=== PATIENT | female | born 1965 | race Caucasian/White ===

== ENCOUNTER 2017-10-05 09:06 | Observation (INO) | payer BC ==
[~2017-10-05] VITALS: Ht 149.9 cm; Wt 63.0 kg
[2017-10-05 09:47] LABS: BASOPHILS # (AUTO) 0.1 (0.0-0.1); BASOPHILS % 1.2 % (0.0-1.0); EOSINOPHILS % 0.2 % (0.0-6.0); HEMATOCRIT 26.4 % (34.2-44.1); LYMPHOCYTES % 24.3 % (18.0-39.1); MEAN CORPUSCULAR HEMOGLOBIN 16.2 pg (28-32); MEAN CORPUSCULAR HGB CONC 26.9 g/dL (31-35); MEAN CORPUSCULAR VOLUME 60.3 fL (81-99); MONOCYTES # (AUTO) 0.3 (0.2-0.8); MONOCYTES % 7.1 % (4.4-11.3); NEUTROPHILS # (AUTO) 2.7 (2.1-6.9); NEUTROPHILS % 66.7 % (38.7-80.0); PLATELET COUNT 360 x10e3/uL (140-360); RED BLOOD COUNT 4.38 x10e6/uL (3.6-5.1); RED CELL DISTRIBUTION WIDTH 22.2 % (11.7-14.4)
[2017-10-05 10:10] LABS: HEMOGLOBIN 7.1 g/dL (12.0-16.0)
[2017-10-05 10:15] LABS: ANION GAP 13.6 mmol/L (8-16); BLOOD UREA NITROGEN 7 mg/dL (7-26); BUN/CREATININE RATIO 11 (6-25); CALCIUM 8.7 mg/dL (8.4-10.2); CARBON DIOXIDE 22 mmol/L (22-29); CHLORIDE 107 mmol/L (98-107); CREATININE, SERUM 0.66 mg/dL (0.57-1.11); EST GLOMERULAR FILTRATION RATE > 60 ML/MIN (60-); GLUCOSE 121 mg/dL (74-118); POTASSIUM 3.6 mmol/L (3.5-5.1); SODIUM 139 mmol/L (136-145)
[2017-10-05] MEDS ORDERED: SODIUM CHLORIDE 0.9% 250ML 250 ML IV ONE (10:30)
[2017-10-05 10:35] LABS: INR 0.88; PROTHROMBIN TIME 12.4 seconds (11.9-14.5)
[2017-10-05 10:36] LABS: PARTIAL THROMBOPLASTIN TIME 23.3 seconds (23.8-35.5)
[2017-10-05] MEDS ORDERED: SODIUM CHLORIDE FLUSH 10 ML SYR INJ PRN (10:45)
--- NOTE | 2017-10-05 12:02 | History and Physical ---
PRIMARY CARE PHYSICIAN: None. CHIEF COMPLAINT: Heavy menstrual bleeding. HISTORY OF PRESENT ILLNESS: This is a 52-year-old woman who has been having increased menstrual bleeding for the past 9 months. Over the last 3 cycles, it has been increased, using more than 18 tampons per day during the menstruation. She has also had irregular periods over the past months. She does not have an [employer]. She denies any weight loss, denies any other symptoms. PAST MEDICAL HISTORY: Hypertension, heavy menstrual bleeding. PAST SURGICAL HISTORY: 20 years ago. ALLERGIES: PER THE ELECTRONIC MEDICAL RECORDS. FAMILY HISTORY/SOCIAL HISTORY: Patient is . She has 3 children. No alcohol, illicit drugs or cigarettes. MEDICATIONS: Per the electronic medical records. Medications reviewed. REVIEW OF SYSTEMS: Denies any dizziness, chest pain. VITAL SIGNS: Reviewed. PHYSICAL EXAMINATION GENERAL APPEARANCE: A tired-appearing woman resting in bed. HEENT: Anicteric. Pupils responsive to light. No oral lesions. CARDIOVASCULAR: Normal S1/S2. LUNGS: Moderate breath sounds. ABDOMEN: Soft, nondistended. Mildly sore secondary to menstruation. EXTREMITIES: No edema or calf tenderness. NEUROLOGICALLY: Alert and oriented x3. Moving all extremities. LABS: Reviewed. ASSESSMENT: A 52-year-old woman. 1. Menorrhagia. 2. Microcytic anemia. 3. Overweight state. 4. Hypertension. PLAN 1. Will obtain anemia panel and likely transfuse patient. 2. I will consult federal aid coordinator, Dr. Catherine. 3. Will obtain a screening hemoglobin A1c and lipid panel. Will also obtain a TSH. 4. Will use SCDs and Pepcid b.i.d. 5. Disposition. Follow up Dr. Ctaherine's recommendations. Job#: [id number] [place]
--- NOTE | 2017-10-05 12:21 | Diagnostic Imaging Report ---
EXAM: Transabdominal and Transvaginal Pelvic Ultrasound INDICATION: \S\dysmenorrhea COMPARISON: None TECHNIQUE: Grayscale transverse and sagittal transabdominal and transvaginal images were obtained of the pelvis. Transvaginal imaging was medically necessary to better evaluate the endometrium and the adnexa. CLINICAL HISTORY: 52 year old A0; last menstrual period: 10/01/2017. FINDINGS: Uterus Orientation: Normal Size: 11.9 x 5.6 x 7.3 cm, enlarged Mass: None Cervix: Normal Endometrium: Appearance: Pocket of fluid within endometrial canal. 2.9 x 2.9 x 1.3 cm lesion within endometrial canal without internal flow on color Doppler Right ovary: Size: 4.3 x 3.5 x 3.5 cm Mass/Cyst: 3.8 x 3 x 2.9 cm cyst Left ovary: Size: 2.9 x 1.7 x 2.2 cm Mass/Cyst: None Adnexa: Normal Cul-de-sac: No free fluid IMPRESSION: 2.8 cm filling defect within endometrial canal may represent blood clot versus hypovascular polyp. Recommend [employer]INTENANCE [employer] consult. 3.8 cm right ovarian cyst. Signed by: Dr. Willy Rnadolph MD on 10/05/2017 12:17 PM
--- NOTE | 2017-10-05 12:21 | Diagnostic Imaging Report ---
EXAM: Transabdominal and Transvaginal Pelvic Ultrasound INDICATION: \S\dysmenorrhea COMPARISON: None TECHNIQUE: Grayscale transverse and sagittal transabdominal and transvaginal images were obtained of the pelvis. Transvaginal imaging was medically necessary to better evaluate the endometrium and the adnexa. CLINICAL HISTORY: 52 year old A0; last menstrual period: 10/01/2017. FINDINGS: Uterus Orientation: Normal Size: 11.9 x 5.6 x 7.3 cm, enlarged Mass: None Cervix: Normal Endometrium: Appearance: Pocket of fluid within endometrial canal. 2.9 x 2.9 x 1.3 cm lesion within endometrial canal without internal flow on color Doppler Right ovary: Size: 4.3 x 3.5 x 3.5 cm Mass/Cyst: 3.8 x 3 x 2.9 cm cyst Left ovary: Size: 2.9 x 1.7 x 2.2 cm Mass/Cyst: None Adnexa: Normal Cul-de-sac: No free fluid IMPRESSION: 2.8 cm filling defect within endometrial canal may represent blood clot versus hypovascular polyp. Recommend MECHANICAL CAD DRAFTER consult. 3.8 cm right ovarian cyst. Signed by: Dr. Willy Randolph MD on 10/05/2017 12:17 PM
[2017-10-05 12:24] LABS: FERRITIN 4.36 ng/mL (4.63-204.00); THYROID STIMULATING HORMONE 3.869 uIU/mL (0.350-4.940)
[2017-10-05 12:37] LABS: FOLATE 18.2 ng/mL (7.0-15.4)
[2017-10-05 14:06] VITALS: BP 136/67
[2017-10-05 15:14] VITALS: BP 136/67
[2017-10-05] MEDS ORDERED: SODIUM CHLORIDE 0.9% 250ML 250 ML ONE (15:51)
[2017-10-05 16:45] VITALS: BP 135/63
[2017-10-05] MEDS: FAMOTIDINE 20 MG/2 ML VIAL IV SCH (17:00)
[2017-10-05] MEDS: ACETAMINOPHEN 325 MG TAB PO PRN (17:19)
[2017-10-05] MEDS ORDERED: FUROSEMIDE INJ 10 MG/ML 2 ML VIAL IV ONE (17:30)
[2017-10-05 20:00] VITALS: BP 166/79
[2017-10-05] MEDS: METOPROLOL TARTRATE 25 MG TAB PO SCH (20:51)
[2017-10-05 22:43] VITALS: BP 166/79
[2017-10-06] VITALS (8 sets, daily range): BP systolic 111–151; BP diastolic 56–80
[2017-10-06 07:12] LABS: HEMATOCRIT 28.8 % (34.2-44.1); HEMOGLOBIN 8.6 g/dL (12.0-16.0)
[2017-10-06 07:57] LABS: BILIRUBIN,URINE NEGATIVE (NEGATIVE); CLARITY,URINE CLEAR (CLEAR); COLOR,URINE YELLOW (YELLOW); KETONES,URINE 2+ (NEGATIVE); LEUKOCYTE ESTERASE ,URINE NEGATIVE (NEGATIVE); NITRITE,URINE NEGATIVE (NEGATIVE); PROTEIN,URINE DIPSTICK NEGATIVE (NEGATIVE); URINE UROBILINOGEN 0.2 mg/dL (0.2 - 1)
[2017-10-06 08:26] LABS: BACTERIA,URINE RARE /HPF; EPITHELIAL CELLS,URINE RARE /LPF; RBC,URINE >50 /HPF (0-5); WBC,URINE (MAN) 0-5 /HPF (0-5)
[2017-10-06] MEDS: FAMOTIDINE 20 MG/2 ML VIAL IV SCH ×2 (09:00→16:51)
[2017-10-06] MEDS: SODIUM FERRIC GLUCONATE COMPLX 125 MG in SODIUM CHLORIDE 0.9% 100 ML 100 ML IV SCH (09:29)
[2017-10-06] MEDS: FERROUS SULFATE 325 MG TAB PO SCH ×2 (09:29→16:51)
[2017-10-06] MEDS: METOPROLOL TARTRATE 25 MG TAB PO SCH ×2 (09:30→21:08)
[2017-10-06] MEDS ORDERED: GADOBENATE DIMEGLUMINE 1 ML IV ONE (15:06)
[2017-10-06] MEDS: MEGESTROL ACETATE 40 MG TAB PO SCH (16:51)
--- NOTE | 2017-10-06 17:20 | Diagnostic Imaging Report ---
EXAM: MRI of the abdomen and pelvis with and without contrast. INDICATION: Heavy periods COMPARISON: Pelvic ultrasound dated 10/05/2017. TECHNIQUE: Multiplanar and multisequence imaging was performed of the abdomen and pelvis without and with administration of intravenous contrast. IV Contrast: 12 cc of MultiHance Oral Contrast: None. Medications: None Discussion: LOWER THORAX: Unremarkable. HEPATOBILIARY: No focal hepatic lesions. No biliary ductal dilation. GALLBLADDER: No radio-opaque stones or sludge. No wall thickening. SPLEEN: No splenomegaly. PANCREAS: No focal masses or ductal dilatation. ADRENALS: No adrenal nodules KIDNEYS/URETERS: Kidneys enhance symmetrically. No hydronephrosis. No cystic or solid mass lesions. GI TRACT: No abnormal distention, wall thickening, or evidence of bowel obstruction. Appendix is normal. PELVIS: Tubular filling defect within the vaginal canal, probably tampon. There is a 6.4 x 3.8 cm mass (series 15, image 17), extending from lower uterine segment to the cervix, demonstrating heterogeneous T2 signal and enhancement. 3.9 x 2.8 cm T2 hyperintense, T1 hypointense, nonenhancing right adnexal simple cyst. LYMPH NODES: No lymphadenopathy. VESSELS: Unremarkable. BONES: Unremarkable. SOFT TISSUES: Partially seen bilateral breast implants. IMPRESSION: Approximately 6.4 cm mass extending from lower uterine segment to the cervix. Differentials include endometrial polyp versus pedunculated submucosal fibroid. Cervical malignancy is less likely, although cannot be entirely excluded. Recommend HUMAN RESOURCES BENEFITS COORDINATOR consult and correlation with direct visualization and tissue sampling. Signed by: Dr. Willy Randolph MD on 10/06/2017 5:16 PM
[2017-10-06] MEDS: ACETAMINOPHEN 325 MG TAB PO PRN (18:00)
[2017-10-07 00:36] VITALS: BP 108/53
[2017-10-07 04:00] VITALS: BP 113/58
[2017-10-07 07:45] VITALS: BP 113/58
[2017-10-07 08:00] LABS: BASOPHILS # (AUTO) 0.1 (0.0-0.1); BASOPHILS % 1.2 % (0.0-1.0); EOSINOPHILS # (AUTO) 0.1 (0.0-0.4); EOSINOPHILS % 1.4 % (0.0-6.0); HEMATOCRIT 33.3 % (34.2-44.1); HEMOGLOBIN 9.6 g/dL (12.0-16.0); LYMPHOCYTES # (AUTO) 1.6 (1.0-3.2); LYMPHOCYTES % 31.7 % (18.0-39.1); MEAN CORPUSCULAR HEMOGLOBIN 19.4 pg (28-32); MEAN CORPUSCULAR HGB CONC 28.8 g/dL (31-35); MEAN CORPUSCULAR VOLUME 67.1 fL (81-99); MONOCYTES # (AUTO) 0.5 (0.2-0.8); MONOCYTES % 8.9 % (4.4-11.3); NEUTROPHILS # (AUTO) 2.9 (2.1-6.9); NEUTROPHILS % 56.6 % (38.7-80.0); PLATELET COUNT 342 x10e3/uL (140-360); RED BLOOD COUNT 4.96 x10e6/uL (3.6-5.1); RED CELL DISTRIBUTION WIDTH 28.5 % (11.7-14.4)
[2017-10-07] MEDS ORDERED: FEOSOL325 MG PO (08:07)
[2017-10-07] MEDS ORDERED: LOPRESSOR25 MG PO (08:07)
[2017-10-07 08:17] VITALS: BP 144/65
[2017-10-07] MEDS: FERROUS SULFATE 325 MG TAB PO SCH (08:20)
[2017-10-07] MEDS: FAMOTIDINE 20 MG/2 ML VIAL IV SCH (08:20)
[2017-10-07] MEDS: MEGESTROL ACETATE 40 MG TAB PO SCH (08:21)
[2017-10-07] MEDS: METOPROLOL TARTRATE 25 MG TAB PO SCH (08:21)
--- NOTE | 2017-10-07 08:27 | Progress Note ---
DATE: October 06, 2017 TIME: 7:40 a.m. OVERNIGHT: No events. REVIEW OF SYSTEMS: Denies any dizziness. VITAL SIGNS: Reviewed. PHYSICAL EXAMINATION GENERAL APPEARANCE: A tired-appearing woman resting in bed. HEENT: Anicteric. CARDIOVASCULAR: Normal S1 and S2. LUNGS: Moderate breath sounds. ABDOMEN: Soft, nontender, nondistended. EXTREMITIES: No edema. SKIN: Dry. PSYCHIATRIC: Normal. LABS: Reviewed. MEDICATIONS: Reviewed. ASSESSMENT: A 52-year-old woman. 1. Menorrhagia. 2. Microcytic anemia. 3. Overweight state. 4. Hypertension. PLAN 1. Follow up MRI on admission. 2. Follow up Dr. Catherine's recommendations. 3. Follow up blood counts. 4. Continue Pepcid and SCDs. Job#: [id number]
--- NOTE | 2017-10-07 08:33 | Progress Note ---
DATE: October 07, 2017 TIME: 7:45 a.m. OVERNIGHT: MRI of the pelvis showed uterine mass. REVIEW OF SYSTEMS: Denies any dizziness. PHYSICAL EXAMINATION VITAL SIGNS: Reviewed. GENERAL: A tired-appearing man resting in bed. HEENT: Anicteric. CARDIOVASCULAR: Normal S1 and S2. LUNGS: Moderate breath sounds. ABDOMEN: Soft, nontender and nondistended. EXTREMITIES: No edema. SKIN: Dry. PSYCHIATRIC: Normal affect. LABS: Reviewed. MEDICATIONS: Reviewed. ASSESSMENT: A 52-year-old woman with: 1. Menorrhagia. 2. Microcytic anemia. 3. Overweight state. 4. Hypertension. 5. Uterine mass, 6.4 cm. 6. Iron deficiency anemia. PLAN 1. Follow up gynecology recommendations. 2. Anemia has improved to 8.6 from 7.1 after 2 units of packed red blood cell transfusion. Will recheck today. 3. Continue IV Ferrlecit and ferrous sulfate. Job#: [id number] [place]
[2017-10-07 08:36] LABS: ANISOCYTOSIS MODERATE; HYPOCHROMASIA SLIGHT
[2017-10-07 08:37] LABS: PLATELET ESTIMATE ADEQUATE; PLATELET MORPHOLOGY COMMENT NORMAL; POIKILOCYTOSIS MODE; RBC MORPHOLOGY COMMENT ABNORMAL
--- NOTE | 2017-10-07 08:38 | Discharge Summary ---
PRINCIPAL DIAGNOSES 1. Uterine mass. 2. Menorrhagia. 3. Microcytic anemia. 4. Overweight state. 5. Hypertension. SECONDARY DIAGNOSIS: Hypertension. CHIEF COMPLAINT: Excessive bleeding. HISTORY OF PRESENT ILLNESS: This is a 52-year-old woman with excessive menstrual bleeding. Refer to the H and P for further details. HOSPITAL COURSE: Patient was found to have menorrhagia, microcytic anemia and iron deficiency anemia. She received IV Ferrlecit and oral ferrous sulfate. MRI imaging showed a 6.4 cm uterine mass. She will follow up with [facility] outpatient for management. Patient was discharged with ferrous sulfate and blood pressure medicine. DISCHARGE MEDICATIONS: Per electronic medical record. FOLLOWUP 1. With me in 1 week. 2. Follow up with Dr. Catherine in 1 week. CONDITION ON DISCHARGE: Stable. GIRISH VAZQUEZ MD Job#: [id number] [place]
[2017-10-07] MEDS: SODIUM FERRIC GLUCONATE COMPLX 125 MG in SODIUM CHLORIDE 0.9% 100 ML 100 ML IV SCH (09:01)
== END 2017-10-07 10:09 | disposition home or self-care (01) ==
LOC: ER 09:06 → ERHOLD 10:45 → INTOOBSV 10:45 → MED/SURG 12:59
PROVIDERS: ADMIT Internal Medicine; ATTEND Internal Medicine
DX: N92.1 Excessive and frequent menstruation with irregular cycle (principal); N85.9 Noninflammatory disorder of uterus, unspecified; D50.0 Iron deficiency anemia secondary to blood loss (chronic); I10 Essential (primary) hypertension; E66.3 Overweight; Z68.28 Body mass index [BMI] 28.0-28.9, adult
CPT/HCPCS: 36415 ×3; 36430; 72197; 74183; 76830; 76856; 80048; 80061; 81001; 82270; 82607; 82728; 82746; 83036; 83540; 84443; 84466; 85014; 85018; 85025 ×2; 85610; 85730; 86850; 86900; 86920; 99284; G0378 ×3; J1940; J2916; J7050; P9016

== ENCOUNTER → 2021-03-23 | Outpatient (CLI) | payer BC ==
[~2021-03-23] MED LIST: AMLODIPINE BESY10 MG PO; FEOSOL325 MG PO; HYDROCHLOROTHIA25 MG PO; LOPRESSOR25 MG PO; LOSARTAN POTASS25 MG PO; ZYRTEC10 MG PO
== END ==
LOC: US 09:27
PROVIDERS: ATTEND Internal Medicine Gastroenterology
DX: R10.10 Upper abdominal pain, unspecified (principal)
CPT/HCPCS: 76700

== ENCOUNTER → 2021-03-27 | Day surgery (SDC) | payer BC ==
[~2021-03-27] MED LIST changes: +FENTANYL CITRATE/PF 100MCG/2 ML INJ ONE; +GLUCAGON FOR INJ 1 MG VIAL ONE; +GLYCOPYRROLATE INJ 0.2 MG/ML VIAL ONE; +HYOSCYAMINE SULFATE 0.5 MG/ML INJ ONE; +LIDOCAINE HCL 2% LOCAL INJ 5 ML SDV VIAL INJ ONE; +METOCLOPRAMIDE HCL 10 MG/2ML VIAL ONE; +MIDAZOLAM HCL 2 MG/2 ML VIAL ONE; +POVIDONE IODINE 0.05% 0.05 % ML PO ONE; +PROPOFOL IV EMULSION 10 MG/ML 20 ML VIAL ONE
[2021-03-27 15:34] VITALS: BP 123/75
== END | disposition home or self-care (01) ==
LOC: OR 11:30
PROVIDERS: ATTEND Internal Medicine Gastroenterology
DX: Z12.11 Encounter for screening for malignant neoplasm of colon (principal); D12.8 Benign neoplasm of rectum; K29.70 Gastritis, unspecified, without bleeding; K20.90 Esophagitis, unspecified without bleeding; K31.89 Other diseases of stomach and duodenum; K57.30 Diverticulosis of large intestine without perforation or abscess without bleeding; K64.8 Other hemorrhoids; I10 Essential (primary) hypertension; R00.1 Bradycardia, unspecified; F41.9 Anxiety disorder, unspecified; Z88.8 Allergy status to other drugs, medicaments and biological substances; Z01.810 Encounter for preprocedural cardiovascular examination; Z01.812 Encounter for preprocedural laboratory examination; Z20.822 Contact with and (suspected) exposure to COVID-19
CPT/HCPCS: 43239; 43245; 45384; 93005; C1726; C9113; J1610; J1980; J2001; J2250; J2704; J2765; J3010; U0002; 45378; 45380

== ENCOUNTER 2024-11-26 07:39 | Inpatient (IN) | payer BC ==
[~2024-11-26] VITALS: Ht 149.9 cm; Wt 52.2 kg
[~2024-11-26 07:39] MED LIST changes: -FENTANYL CITRATE/PF 100MCG/2 ML INJ ONE; -GLUCAGON FOR INJ 1 MG VIAL ONE; -GLYCOPYRROLATE INJ 0.2 MG/ML VIAL ONE; -HYOSCYAMINE SULFATE 0.5 MG/ML INJ ONE; -LIDOCAINE HCL 2% LOCAL INJ 5 ML SDV VIAL INJ ONE; -METOCLOPRAMIDE HCL 10 MG/2ML VIAL ONE; -MIDAZOLAM HCL 2 MG/2 ML VIAL ONE; -POVIDONE IODINE 0.05% 0.05 % ML PO ONE; -PROPOFOL IV EMULSION 10 MG/ML 20 ML VIAL ONE
[2024-11-26 08:05] LABS: BASOPHILS % 0.4 % (0.0-1.0); HEMATOCRIT 43.1 % (34.2-44.1); HEMOGLOBIN 16.1 g/dL (12.0-16.0); LYMPHOCYTES # (AUTO) 0.3 (1.0-3.2); LYMPHOCYTES % 14.6 % (18.0-39.1); MEAN CORPUSCULAR HEMOGLOBIN 30.4 pg (28-32); MEAN CORPUSCULAR HGB CONC 37.4 g/dL (31-35); MEAN CORPUSCULAR VOLUME 81.3 fL (81-99); MONOCYTES # (AUTO) 0.4 (0.2-0.8); NEUTROPHILS # (AUTO) 1.5 (2.1-6.9); NEUTROPHILS % 65.6 % (38.7-80.0); PLATELET COUNT 300 x10e3/uL (140-360); RED CELL DISTRIBUTION WIDTH 12.3 % (11.7-14.4); WHITE BLOOD COUNT 2.26 x10e3/uL (4.8-10.8)
[2024-11-26] MEDS: ONDANSETRON HCL INJ 2MG/ML 2ML 2 MG/ML VIAL IV STA (08:05)
[2024-11-26] MEDS: KETOROLAC TROMETHAMINE 30 MG/ML VIAL IV STA (08:05)
[2024-11-26] MEDS: SODIUM CHLORIDE 0.9% 1000ML 1,000 ML IV STA (08:06)
[2024-11-26 08:22] LABS: INR 0.97; PROTHROMBIN TIME 13.5 seconds (11.9-14.5)
[2024-11-26 08:23] LABS: PARTIAL THROMBOPLASTIN TIME 22.7 seconds (23.8-35.5)
[2024-11-26 08:29] LABS: INFLUENZA A AG NEGATIVE (NEGATIVE)
[2024-11-26 08:30] LABS: CORONAVIRUS COVID-19 AG NEGATIVE (NEGATIVE); INFLUENZA B AG NEGATIVE (NEGATIVE)
[2024-11-26 08:33] LABS: ALBUMIN/GLOBULIN RATIO 1.3 (0.8-2.0); ANION GAP 24.3 mmol/L (8-16); BILIRUBIN,TOTAL 1.3 mg/dL (0.2-1.2); CALCIUM 9.6 mg/dL (8.4-10.2); CREATININE, SERUM 0.76 mg/dL (0.57-1.11); MAGNESIUM 1.6 MG/DL (1.3-2.1); TOTAL PROTEIN 7.2 g/dL (6.5-8.1)
[2024-11-26 08:39] LABS: POTASSIUM 3.3 mmol/L (3.5-5.1)
[2024-11-26 08:40] LABS: TROPONIN I 0.008 ng/mL (0-0.300)
[2024-11-26] MEDS ORDERED: IOPAMIDOL 370 MG/ML 100 ML INFUS..BTL INJ ONE (08:48)
[2024-11-26 09:13] LABS: BAND NEUTROPHILS % (MANUAL) 10 %; LYMPHOCYTES % (MANUAL) 25 % (19-48); MONOCYTES % (MANUAL) 11 % (3.4-9.0); NEUTROPHILS % (MANUAL) 52 % (40-74); PLATELET ESTIMATE ADEQUATE; PLATELET MORPHOLOGY COMMENT NORMAL; REACTIVE LYMPHOCYTES 2
[2024-11-26] MEDS: KCL 20MEQ/.9 SOD CHL 1,000 ML IV ONE (09:43)
[2024-11-26] MEDS: KCL 20 MEQ PACKET/ ORAL SOLN PO STA (09:43)
[2024-11-26 09:53] LABS: CLARITY,URINE CLEAR (CLEAR); COLOR,URINE YELLOW (YELLOW); LEUKOCYTE ESTERASE ,URINE NEGATIVE (NEGATIVE); NITRITE,URINE NEGATIVE (NEGATIVE); PH,URINE 6 (5 - 7); PROTEIN,URINE DIPSTICK 1+ (NEGATIVE)
[2024-11-26 09:54] LABS: BILIRUBIN,URINE SMALL (NEGATIVE); GLUCOSE, URINE NEGATIVE (NEGATIVE); KETONES,URINE >=160 (NEGATIVE); URINE UROBILINOGEN 0.2 mg/dL (0.2 - 1)
[2024-11-26 10:01] LABS: ETHANOL < 10.0 mg/dL (0.0-10.0); SALICYLATE < 5.0 mg/dL (0-30)
[2024-11-26 10:24] LABS: BACTERIA,URINE MODERATE /HPF; RBC,URINE 0-5 /HPF (0-5); WBC,URINE (MAN) 0-5 /HPF (0-5)
[2024-11-26 10:25] LABS: EPITHELIAL CELLS,URINE FEW /LPF
[2024-11-26] MEDS: BENZOCAINE/TETRACAINE/BUTAMBEN AERO SPRAY 56 GM CAN TOP ONE (13:55)
[2024-11-26 14:50] VITALS: PULSE 93; RESP 18; TEMP 99.8
[2024-11-26] MEDS: Morphine 2mg Syringe 2 MG/ML SYR IV PRN (15:02)
[2024-11-26] MEDS: SODIUM CHLORIDE 0.9% 1000ML 1,000 ML IV SCH ×2 (15:02→18:15)
[2024-11-26] MEDS ORDERED: HYDRALAZINE HCL 20 MG/ML VIAL IV PRN (15:15)
[2024-11-26 16:49] VITALS: BP 135/74; PULSE 100; TEMP 98.7
[2024-11-26 16:50] VITALS: BP 135/74; PULSE 73; TEMP 98; O2SAT 97
[2024-11-26] MEDS ORDERED: [UNRECOGNIZED DRUG - REMARK] (17:48)
[2024-11-26] MEDS ORDERED: IRON PILL (17:48)
[2024-11-26 18:59] VITALS: BP 135/74; PULSE 100; TEMP 98.7; O2SAT 96
[2024-11-26 20:00] VITALS: BP 117/67; PULSE 105; RESP 17; TEMP 99; O2SAT 96
[2024-11-26] MEDS: ONDANSETRON HCL INJ 2MG/ML 2ML 2 MG/ML VIAL IV PRN (22:53)
[2024-11-27] VITALS (7 sets, daily range): BP systolic 92–105; BP diastolic 22–63; PULSE 96–122; RESP 17–20; TEMP 98–99.7; O2SAT 96–99
[2024-11-27 08:11] LABS: BASOPHILS % 0.7 % (0.0-1.0); EOSINOPHILS % 0.4 % (0.0-6.0); HEMATOCRIT 44.2 % (34.2-44.1); HEMOGLOBIN 15.2 g/dL (12.0-16.0); LYMPHOCYTES # (AUTO) 0.3 (1.0-3.2); LYMPHOCYTES % 10.9 % (18.0-39.1); MEAN CORPUSCULAR HGB CONC 34.4 g/dL (31-35); MEAN CORPUSCULAR VOLUME 87.4 fL (81-99); MONOCYTES # (AUTO) 0.4 (0.2-0.8); MONOCYTES % 15.2 % (4.4-11.3); PLATELET COUNT 222 x10e3/uL (140-360); RED BLOOD COUNT 5.06 x10e6/uL (3.6-5.1); WHITE BLOOD COUNT 2.76 x10e3/uL (4.8-10.8)
[2024-11-27 08:35] LABS: ALBUMIN 2.8 g/dL (3.5-5.0); ANION GAP 17.6 mmol/L (8-16); BILIRUBIN,TOTAL 1.1 mg/dL (0.2-1.2); CALCIUM 8.1 mg/dL (8.4-10.2); CREATININE, SERUM 0.89 mg/dL (0.57-1.11); POTASSIUM 3.6 mmol/L (3.5-5.1); TOTAL PROTEIN 5.5 g/dL (6.5-8.1)
[2024-11-27 09:22] LABS: TROPONIN I 0.02 ng/mL (0-0.300)
[2024-11-27 15:34] LABS: BAND NEUTROPHILS % (MANUAL) 36 %; LYMPHOCYTES % (MANUAL) 20 % (19-48); MONOCYTES % (MANUAL) 24 % (3.4-9.0); MYELOCYTES % (MANUAL) 3 % (0-0); NEUTROPHILS % (MANUAL) 8 % (40-74); PLATELET ESTIMATE ADEQUATE; PLATELET MORPHOLOGY COMMENT NORMAL; PROMYELOCYTES % (MANUAL) 9 % (0-0); RBC MORPHOLOGY COMMENT NORMAL
[2024-11-28] VITALS (25 sets, daily range): BP systolic 74–110; BP diastolic 31–72; PULSE 87–105; RESP 12–23; TEMP 97.8–99; O2SAT 92–100
[2024-11-28 06:48] LABS: EOSINOPHILS % 0.2 % (0.0-6.0); HEMATOCRIT 44.8 % (34.2-44.1); HEMOGLOBIN 14.8 g/dL (12.0-16.0); LYMPHOCYTES # (AUTO) 0.6 (1.0-3.2); LYMPHOCYTES % 10.2 % (18.0-39.1); MEAN CORPUSCULAR HEMOGLOBIN 30.1 pg (28-32); MEAN CORPUSCULAR VOLUME 91.2 fL (81-99); MONOCYTES # (AUTO) 0.6 (0.2-0.8); NEUTROPHILS # (AUTO) 4.5 (2.1-6.9); NEUTROPHILS % 78.9 % (38.7-80.0); PLATELET COUNT 164 x10e3/uL (140-360); RED BLOOD COUNT 4.91 x10e6/uL (3.6-5.1); RED CELL DISTRIBUTION WIDTH 13.1 % (11.7-14.4)
[2024-11-28] MEDS: SODIUM CHLORIDE 0.9% 250ML IRRIG IR SCH ×2 (08:15→11:15)
[2024-11-28 08:32] LABS: ALBUMIN 2.3 g/dL (3.5-5.0); ALBUMIN/GLOBULIN RATIO 0.7 (0.8-2.0); ANION GAP 22.4 mmol/L (8-16); BILIRUBIN,TOTAL 0.7 mg/dL (0.2-1.2); CALCIUM 7.9 mg/dL (8.4-10.2); MAGNESIUM 2.2 MG/DL (1.3-2.1); TOTAL PROTEIN 5.4 g/dL (6.5-8.1)
[2024-11-28 08:37] LABS: POTASSIUM 3.4 mmol/L (3.5-5.1)
[2024-11-28 08:38] LABS: CREATININE, SERUM 3.11 mg/dL (0.57-1.11)
[2024-11-28 08:38] LABS: TROPONIN I 0.045 ng/mL (0-0.300)
[2024-11-28] MEDS ORDERED: FENTANYL CITRATE/PF 100MCG/2 ML INJ ONE (09:21)
[2024-11-28] MEDS ORDERED: LIDOCAINE HCL 2% LOCAL INJ 5 ML SDV VIAL INJ ONE (09:21)
[2024-11-28] MEDS ORDERED: PROPOFOL IV EMULSION 10 MG/ML 20 ML VIAL ONE (09:21)
[2024-11-28] MEDS ORDERED: SUCCINYLCHOLINE CHLORIDE 20 MG/ML 10ML VIAL ONE (09:21)
[2024-11-28] MEDS ORDERED: ROCURONIUM BROMIDE 1 ML IV ONE (09:21)
[2024-11-28] MEDS ORDERED: HYDROMORPHONE 2MG/ML ONE (09:21)
[2024-11-28] MEDS: SODIUM CHLORIDE 0.9% 1000ML 1,000 ML IV SCH ×2 (09:21→12:23)
[2024-11-28] MEDS ORDERED: DEXTROSE 50% SYRINGE 50 ML IV ONE (09:34)
[2024-11-28] MEDS: DEXTROSE 50% SYRINGE 50 ML IV ONE (09:51)
[2024-11-28] MEDS ORDERED: KETOROLAC TROMETHAMINE 30 MG/ML VIAL ONE ×2 (10:32→12:01)
[2024-11-28] MEDS ORDERED: METOCLOPRAMIDE HCL 10 MG/2ML VIAL ONE ×2 (10:32→12:01)
[2024-11-28] MEDS ORDERED: ONDANSETRON HCL INJ 2MG/ML 2ML 2 MG/ML VIAL ONE ×2 (10:32→12:01)
[2024-11-28] MEDS ORDERED: DEXAMETHASONE SOD PHOS INJ 4 MG/ML SDV ONE ×2 (10:32→12:01)
[2024-11-28] MEDS ORDERED: SUGAMMADEX SODIUM 200 MG/2 ML VIAL IV ONE (10:37)
[2024-11-28] MEDS ORDERED: EPHEDRINE SULFATE INJ 50 MG/ML VIAL ONE (11:59)
[2024-11-28] MEDS ORDERED: SEVOFLURANE INHAL SOLN 250 ML PEN BTL ONE ×2 (12:20→12:21)
[2024-11-28] MEDS: LACTATED RINGER'S 1,000 ML INJ ONE (13:58)
[2024-11-28 15:07] LABS: BASOPHILS # (AUTO) 0.1 (0.0-0.1); BASOPHILS % 1.7 % (0.0-1.0); HEMATOCRIT 36.1 % (34.2-44.1); HEMOGLOBIN 13.1 g/dL (12.0-16.0); LYMPHOCYTES # (AUTO) 0.4 (1.0-3.2); LYMPHOCYTES % 7.9 % (18.0-39.1); MEAN CORPUSCULAR HEMOGLOBIN 30.6 pg (28-32); MEAN CORPUSCULAR HGB CONC 36.3 g/dL (31-35); MEAN CORPUSCULAR VOLUME 84.3 fL (81-99); MONOCYTES # (AUTO) 0.4 (0.2-0.8); MONOCYTES % 8.3 % (4.4-11.3); NEUTROPHILS # (AUTO) 4.3 (2.1-6.9); PLATELET COUNT 169 x10e3/uL (140-360); RED BLOOD COUNT 4.28 x10e6/uL (3.6-5.1); RED CELL DISTRIBUTION WIDTH 13.1 % (11.7-14.4); WHITE BLOOD COUNT 5.33 x10e3/uL (4.8-10.8)
[2024-11-28 15:26] LABS: ALBUMIN 1.8 g/dL (3.5-5.0); ALBUMIN/GLOBULIN RATIO 0.7 (0.8-2.0); ANION GAP 18.1 mmol/L (8-16); BILIRUBIN,TOTAL 0.5 mg/dL (0.2-1.2); CALCIUM 7.2 mg/dL (8.4-10.2); CREATININE, SERUM 2.34 mg/dL (0.57-1.11); TOTAL PROTEIN 4.4 g/dL (6.5-8.1)
[2024-11-28 15:27] LABS: POTASSIUM 3.1 mmol/L (3.5-5.1)
[2024-11-28 15:44] LABS: ABG HCO3 16 mmol/L (22-26); ABG PCO2 29 mmHg (35-45); ABG PH 7.35 (7.35-7.45); ABG PO2 84 mmHg (80-105); ABG TCO2 17
[2024-11-28] MEDS: POTASSIUM CHLORIDE 20MEQ/100ML 100 ML IV SCH (17:09)
[2024-11-28] MEDS: BUPIVACAINE LIPOSOME/PF 266 MG/20 ML IJ ONE (19:43)
[2024-11-28] MEDS: LACTATED RINGER'S 1,000 ML ONE (19:43)
[2024-11-28] MEDS: LACTATED RINGER'S 1,000 ML INJ SCH (22:19)
[2024-11-29] VITALS (27 sets, daily range): BP systolic 107–142; BP diastolic 68–92; PULSE 73–93; RESP 11–28; TEMP 97.8–98.7; O2SAT 94–99
[2024-11-29] MEDS: ACETAMINOPHEN 1000 MG/100 ML IV PRN (04:02)
[2024-11-29 06:19] LABS: BASOPHILS % 0.1 % (0.0-1.0); HEMOGLOBIN 12.3 g/dL (12.0-16.0); LYMPHOCYTES # (AUTO) 0.6 (1.0-3.2); MEAN CORPUSCULAR HEMOGLOBIN 30.3 pg (28-32); MEAN CORPUSCULAR HGB CONC 35.1 g/dL (31-35); MEAN CORPUSCULAR VOLUME 86.2 fL (81-99); MONOCYTES # (AUTO) 1.1 (0.2-0.8); MONOCYTES % 15.3 % (4.4-11.3); NEUTROPHILS # (AUTO) 5.2 (2.1-6.9); NEUTROPHILS % 75.3 % (38.7-80.0); PLATELET COUNT 149 x10e3/uL (140-360); RED BLOOD COUNT 4.06 x10e6/uL (3.6-5.1); RED CELL DISTRIBUTION WIDTH 13.2 % (11.7-14.4); WHITE BLOOD COUNT 6.88 x10e3/uL (4.8-10.8)
[2024-11-29 06:35] LABS: INR 0.9; PROTHROMBIN TIME 12.7 seconds (11.9-14.5)
[2024-11-29 06:45] LABS: ALBUMIN 1.8 g/dL (3.5-5.0); ALBUMIN/GLOBULIN RATIO 0.7 (0.8-2.0); ANION GAP 14.5 mmol/L (8-16); BILIRUBIN,TOTAL 0.4 mg/dL (0.2-1.2); CALCIUM 7.7 mg/dL (8.4-10.2); CREATININE, SERUM 1.6 mg/dL (0.57-1.11); POTASSIUM 3.5 mmol/L (3.5-5.1); TOTAL PROTEIN 4.5 g/dL (6.5-8.1)
[2024-11-29 06:46] LABS: CALCIUM IONIZED 1.1 mmol/L (1.09-1.30)
[2024-11-29 07:06] LABS: MAGNESIUM 1.9 MG/DL (1.3-2.1); PHOSPHORUS 3.5 MG/DL (2.3-4.7)
[2024-11-29 07:18] LABS: EOSINOPHIL SMEAR,URINE NONE SEEN (NONE SEEN)
[2024-11-29 07:35] LABS: CREATININE,URINE RANDOM 98.98 mg/dL (47-110); TOTAL PROTEIN, URINE 54.6 mg/dL (1-14)
[2024-11-29 07:46] LABS: BAND NEUTROPHILS % (MANUAL) 4 %; LYMPHOCYTES % (MANUAL) 4 % (19-48); METAMYELOCYTES % (MANUAL) 3 % (0-0); MONOCYTES % (MANUAL) 8 % (3.4-9.0); MYELOCYTES % (MANUAL) 1 % (0-0); NEUTROPHILS % (MANUAL) 80 % (40-74); PLATELET ESTIMATE ADEQUATE; PLATELET MORPHOLOGY COMMENT NORMAL; TOXIC GRANULATION SLIGHT
[2024-11-29] MEDS: POTASSIUM CHLORIDE 20MEQ/100ML 100 ML IV ONE (16:29)
[2024-11-29] MEDS: ENOXAPARIN SOD INJ 40 MG/0.4 ML SYR SC SCH (16:30)
[2024-11-30] VITALS (32 sets, daily range): BP systolic 97–147; BP diastolic 66–92; PULSE 55–100; RESP 15–25; TEMP 98–98.9; O2SAT 92–100
[2024-11-30 07:00] LABS: EOSINOPHILS % 0.6 % (0.0-6.0); HEMATOCRIT 35.2 % (34.2-44.1); HEMOGLOBIN 12.3 g/dL (12.0-16.0); LYMPHOCYTES # (AUTO) 0.9 (1.0-3.2); LYMPHOCYTES % 12.6 % (18.0-39.1); MEAN CORPUSCULAR HEMOGLOBIN 30.1 pg (28-32); MEAN CORPUSCULAR HGB CONC 34.9 g/dL (31-35); MEAN CORPUSCULAR VOLUME 86.3 fL (81-99); MONOCYTES # (AUTO) 1.1 (0.2-0.8); MONOCYTES % 16.4 % (4.4-11.3); NEUTROPHILS # (AUTO) 4.2 (2.1-6.9); NEUTROPHILS % 61.7 % (38.7-80.0); PLATELET COUNT 134 x10e3/uL (140-360); RED BLOOD COUNT 4.08 x10e6/uL (3.6-5.1); RED CELL DISTRIBUTION WIDTH 13.3 % (11.7-14.4); WHITE BLOOD COUNT 6.81 x10e3/uL (4.8-10.8)
[2024-11-30 07:14] LABS: ALBUMIN 1.7 g/dL (3.5-5.0); ALBUMIN/GLOBULIN RATIO 0.7 (0.8-2.0); ANION GAP 16.5 mmol/L (8-16); BILIRUBIN,TOTAL 0.3 mg/dL (0.2-1.2); CALCIUM 7.9 mg/dL (8.4-10.2); CREATININE, SERUM 0.68 mg/dL (0.57-1.11); POTASSIUM 3.5 mmol/L (3.5-5.1); TOTAL PROTEIN 4.3 g/dL (6.5-8.1)
[2024-11-30 07:38] LABS: ABG HCO3 18 mmol/L (22-26); ABG PCO2 40 mmHg (35-45); ABG PH 7.27 (7.35-7.45); ABG PO2 78 mmHg (80-105); ABG TCO2 19
[2024-11-30 09:59] LABS: BAND NEUTROPHILS % (MANUAL) 3 %; EOSINOPHILS % (MANUAL) 2 % (0-7); LYMPHOCYTES % (MANUAL) 7 % (19-48); METAMYELOCYTES % (MANUAL) 2 % (0-0); MONOCYTES % (MANUAL) 13 % (3.4-9.0); MYELOCYTES % (MANUAL) 2 % (0-0); NEUTROPHILS % (MANUAL) 71 % (40-74); PLATELET ESTIMATE ADEQUATE; PLATELET MORPHOLOGY COMMENT NORMAL; TOXIC GRANULATION MODERATE
[2024-11-30] MEDS: FUROSEMIDE INJ 10 MG/ML 2 ML VIAL IV ONE (18:44)
[2024-11-30] MEDS: BISACODYL 10 MG SUPP PR SCH (21:00)
[2024-12-01] VITALS (25 sets, daily range): BP systolic 125–156; BP diastolic 67–93; PULSE 54–85; RESP 13–25; TEMP 97.9–98.1; O2SAT 36–100
[2024-12-01 06:50] LABS: BASOPHILS # (AUTO) 0.1 (0.0-0.1); BASOPHILS % 0.6 % (0.0-1.0); EOSINOPHILS # (AUTO) 0.1 (0.0-0.4); EOSINOPHILS % 0.8 % (0.0-6.0); HEMATOCRIT 31.7 % (34.2-44.1); HEMOGLOBIN 11.5 g/dL (12.0-16.0); LYMPHOCYTES # (AUTO) 1.2 (1.0-3.2); LYMPHOCYTES % 15.7 % (18.0-39.1); MEAN CORPUSCULAR HEMOGLOBIN 30.3 pg (28-32); MEAN CORPUSCULAR HGB CONC 36.3 g/dL (31-35); MEAN CORPUSCULAR VOLUME 83.4 fL (81-99); MONOCYTES # (AUTO) 1.1 (0.2-0.8); MONOCYTES % 13.5 % (4.4-11.3); NEUTROPHILS # (AUTO) 4.4 (2.1-6.9); NEUTROPHILS % 57.3 % (38.7-80.0); PLATELET COUNT 122 x10e3/uL (140-360); RED CELL DISTRIBUTION WIDTH 13.1 % (11.7-14.4); WHITE BLOOD COUNT 7.75 x10e3/uL (4.8-10.8)
[2024-12-01 07:12] LABS: ALBUMIN 1.7 g/dL (3.5-5.0); ALBUMIN/GLOBULIN RATIO 0.7 (0.8-2.0); BILIRUBIN,TOTAL 0.2 mg/dL (0.2-1.2); CALCIUM 7.7 mg/dL (8.4-10.2); CREATININE, SERUM 0.6 mg/dL (0.57-1.11)
[2024-12-01 11:08] LABS: BASOPHILS % (MANUAL) 1 % (0-1.5); EOSINOPHILS % (MANUAL) 1 % (0-7); LYMPHOCYTES % (MANUAL) 7 % (19-48); METAMYELOCYTES % (MANUAL) 2 % (0-0); MONOCYTES % (MANUAL) 4 % (3.4-9.0); MYELOCYTES % (MANUAL) 4 % (0-0); NEUTROPHILS % (MANUAL) 81 % (40-74); PLATELET ESTIMATE SLIGHTLY DECREASED; PLATELET MORPHOLOGY COMMENT NORMAL; RBC MORPHOLOGY COMMENT NORMAL
[2024-12-01] MEDS: POTASSIUM CHLORIDE 20MEQ/100ML 100 ML IV ONE (12:28)
[2024-12-02] VITALS (9 sets, daily range): BP systolic 126–163; BP diastolic 64–90; PULSE 64–81; RESP 17–20; TEMP 97.6–98.2; O2SAT 97–100
[2024-12-02 06:45] LABS: BASOPHILS # (AUTO) 0.1 (0.0-0.1); BASOPHILS % 0.9 % (0.0-1.0); EOSINOPHILS # (AUTO) 0.1 (0.0-0.4); EOSINOPHILS % 0.9 % (0.0-6.0); HEMOGLOBIN 12.1 g/dL (12.0-16.0); LYMPHOCYTES # (AUTO) 1.7 (1.0-3.2); LYMPHOCYTES % 14.4 % (18.0-39.1); MEAN CORPUSCULAR HEMOGLOBIN 30.3 pg (28-32); MEAN CORPUSCULAR HGB CONC 36.7 g/dL (31-35); MEAN CORPUSCULAR VOLUME 82.7 fL (81-99); MONOCYTES # (AUTO) 1.1 (0.2-0.8); MONOCYTES % 9.4 % (4.4-11.3); NEUTROPHILS # (AUTO) 6.9 (2.1-6.9); NEUTROPHILS % 59.2 % (38.7-80.0); PLATELET COUNT 164 x10e3/uL (140-360); RED BLOOD COUNT 3.99 x10e6/uL (3.6-5.1); RED CELL DISTRIBUTION WIDTH 12.9 % (11.7-14.4); WHITE BLOOD COUNT 11.63 x10e3/uL (4.8-10.8)
[2024-12-02 06:58] LABS: ALBUMIN/GLOBULIN RATIO 0.8 (0.8-2.0); ANION GAP 14.9 mmol/L (8-16); BILIRUBIN,TOTAL 0.4 mg/dL (0.2-1.2); CREATININE, SERUM 0.56 mg/dL (0.57-1.11); TOTAL PROTEIN 4.4 g/dL (6.5-8.1)
[2024-12-02 07:06] LABS: POTASSIUM 2.9 mmol/L (3.5-5.1)
[2024-12-02 10:18] LABS: BAND NEUTROPHILS % (MANUAL) 5 %; EOSINOPHILS % (MANUAL) 2 % (0-7); LYMPHOCYTES % (MANUAL) 12 % (19-48); METAMYELOCYTES % (MANUAL) 3 % (0-0); MONOCYTES % (MANUAL) 7 % (3.4-9.0); MYELOCYTES % (MANUAL) 4 % (0-0); NEUTROPHILS % (MANUAL) 67 % (40-74); PLATELET ESTIMATE ADEQUATE; PLATELET MORPHOLOGY COMMENT NORMAL; RBC MORPHOLOGY COMMENT NORMAL
[2024-12-02] MEDS: POTASSIUM CHLORIDE 20MEQ/100ML 100 ML IV ONE (10:42)
[2024-12-02] MEDS: LOSARTAN POTASSIUM 25 MG TAB PO SCH (10:43)
[2024-12-02] MEDS: POTASSIUM CHLORIDE 10MEQ EA PO ONE (10:43)
[2024-12-02] MEDS: FUROSEMIDE 40 MG TAB PO ONE (20:26)
[2024-12-03] VITALS: BP 125/76; PULSE 71; RESP 18; TEMP 98.1; O2SAT 96
[2024-12-03 04:00] VITALS: BP 115/70; PULSE 71; RESP 18; TEMP 98.5; O2SAT 96
[2024-12-03 07:12] LABS: BASOPHILS # (AUTO) 0.1 (0.0-0.1); BASOPHILS % 0.7 % (0.0-1.0); EOSINOPHILS # (AUTO) 0.2 (0.0-0.4); EOSINOPHILS % 1.4 % (0.0-6.0); HEMATOCRIT 33.4 % (34.2-44.1); LYMPHOCYTES # (AUTO) 1.7 (1.0-3.2); LYMPHOCYTES % 15.7 % (18.0-39.1); MEAN CORPUSCULAR HEMOGLOBIN 29.9 pg (28-32); MEAN CORPUSCULAR HGB CONC 35.9 g/dL (31-35); MEAN CORPUSCULAR VOLUME 83.3 fL (81-99); MONOCYTES # (AUTO) 0.7 (0.2-0.8); MONOCYTES % 6.3 % (4.4-11.3); NEUTROPHILS # (AUTO) 6.9 (2.1-6.9); NEUTROPHILS % 62.4 % (38.7-80.0); PLATELET COUNT 201 x10e3/uL (140-360); RED BLOOD COUNT 4.01 x10e6/uL (3.6-5.1); RED CELL DISTRIBUTION WIDTH 12.7 % (11.7-14.4); WHITE BLOOD COUNT 11.06 x10e3/uL (4.8-10.8)
[2024-12-03 07:32] VITALS: PULSE 73; RESP 18; O2SAT 98
[2024-12-03 07:38] LABS: ALBUMIN 2.3 g/dL (3.5-5.0); ALBUMIN/GLOBULIN RATIO 0.9 (0.8-2.0); ANION GAP 11.7 mmol/L (8-16); BILIRUBIN,TOTAL 0.6 mg/dL (0.2-1.2); CALCIUM 8.2 mg/dL (8.4-10.2); CREATININE, SERUM 0.55 mg/dL (0.57-1.11); TOTAL PROTEIN 4.9 g/dL (6.5-8.1)
[2024-12-03 07:39] LABS: POTASSIUM 2.7 mmol/L (3.5-5.1)
[2024-12-03 08:15] LABS: LYMPHOCYTES % (MANUAL) 8 % (19-48); MONOCYTES % (MANUAL) 3 % (3.4-9.0); MYELOCYTES % (MANUAL) 3 % (0-0); NEUTROPHILS % (MANUAL) 68 % (40-74); PLATELET ESTIMATE ADEQUATE; REACTIVE LYMPHOCYTES 18
[2024-12-03 08:16] LABS: PLATELET MORPHOLOGY COMMENT NORMAL; RBC MORPHOLOGY COMMENT NORMAL
[2024-12-03] MEDS ORDERED: POTASSIUM CHLO20 ME1 PO (08:23)
[2024-12-03] MEDS: MAGNESIUM SULFATE 2GM/50ML 50 ML IV ONE (09:08)
[2024-12-03] MEDS: POTASSIUM CHLORIDE 20MEQ/100ML 100 ML IV ONE (09:08)
[2024-12-03] MEDS: POTASSIUM CHLORIDE 20 MEQ TAB CR PO ONE (09:12)
[2024-12-03] MEDS: FUROSEMIDE INJ 10 MG/ML 2 ML VIAL IV ONE (09:12)
[2024-12-03 09:26] VITALS: BP 118/73; PULSE 79; RESP 20; TEMP 98.6; O2SAT 96
[2024-12-03 09:33] VITALS: BP 118/73; PULSE 79; RESP 20; TEMP 98.6; O2SAT 96
[2024-12-03 14:27] VITALS: PULSE 76; RESP 18; O2SAT 97
[2024-12-08 05:50] LABS: ABG HCO3 20 mmol/L (22-26); ABG PCO2 25 mmHg (35-45); ABG PH 7.52 (7.35-7.45); ABG PO2 35 mmHg (80-105); ABG TCO2 21
[2024-12-08 05:50] LABS: ABG HCO3 16 mmol/L (22-26); ABG PCO2 29 mmHg (35-45); ABG PH 7.35 (7.35-7.45); ABG PO2 84 mmHg (80-105); ABG TCO2 17
== END 2024-12-03 14:49 | disposition home or self-care (01) | DRG 335 ==
LOC: ER 07:44 → ERHOLD 11:14 → MED/SURG3 15:58 → ICU 11-28 08:26 → MED/SURG 12-01 16:22
PROVIDERS: ADMIT Family Medicine Adult Medicine; ATTEND Family Medicine Adult Medicine
PROC: 4A133R1 Monitoring of Arterial Saturation, Peripheral, Percutaneous Approach (ICD-10-PCS; 2024-11-26)
PROC: 02HV33Z Insertion of Infusion Device into Superior Vena Cava, Percutaneous Approach (ICD-10-PCS; 2024-11-28)
PROC: 0DNB0ZZ Release Ileum, Open Approach (ICD-10-PCS; principal; 2024-11-28 09:45)
DX: K56.50 Intestinal adhesions [bands], unspecified as to partial versus complete obstruction (principal); N17.0 Acute kidney failure with tubular necrosis; E87.4 Mixed disorder of acid-base balance; E87.20 Acidosis, unspecified; J90 Pleural effusion, not elsewhere classified; R17 Unspecified jaundice; R65.10 Systemic inflammatory response syndrome (SIRS) of non-infectious origin without acute organ dysfunction; D72.819 Decreased white blood cell count, unspecified; R00.0 Tachycardia, unspecified; I95.9 Hypotension, unspecified; I10 Essential (primary) hypertension; E87.6 Hypokalemia; E86.0 Dehydration; D75.1 Secondary polycythemia; M47.817 Spondylosis without myelopathy or radiculopathy, lumbosacral region; R94.31 Abnormal electrocardiogram [ECG] [EKG]; Z11.52 Encounter for screening for COVID-19; Z90.710 Acquired absence of both cervix and uterus; Z88.8 Allergy status to other drugs, medicaments and biological substances
CPT/HCPCS: 36415; 36569; 36600; 71045; 74018; 74022; 74177; 76770; 80053; 80320; 80329; 81001; 81015; 82550; 82570; 82805; 82948; 83605; 83690; 83735; 84100; 84132; 84156; 84484; 85025; 85610; 85730; 87040; 87071; 87205; 93005; 94799; 99252; 99285; J0330; J0666; J0696; J1100; J1171; J1650; J1885; J1940; J2003; J2270; J2405; J2470; J2543; J2765; J3475; J3480; J7030; J7799; Q9967